=== PATIENT | female | born 1970 | race Caucasian/White ===

== ENCOUNTER → 2016-08-30 | Outpatient (CLI) | payer OTHER | LOC: BMCIMAGING 10:51 | PROVIDERS: ATTEND Obstetrics & Gynecology | DX: Z12.31 Encounter for screening mammogram for malignant neoplasm of breast (principal) | CPT/HCPCS: G0202 ==

== ENCOUNTER → 2017-08-31 | Outpatient (CLI) | payer OTHER | LOC: BMCIMAGING 08:27 | PROVIDERS: ATTEND Internal Medicine | DX: Z12.31 Encounter for screening mammogram for malignant neoplasm of breast (principal); R92.8 Other abnormal and inconclusive findings on diagnostic imaging of breast ==

== ENCOUNTER → 2017-09-07 | Outpatient (CLI) | payer OTHER | LOC: BMCIMAGING 09:46 | PROVIDERS: ATTEND Internal Medicine | DX: R92.8 Other abnormal and inconclusive findings on diagnostic imaging of breast (principal) ==

== ENCOUNTER → 2018-09-05 | Outpatient (CLI) | payer BC | LOC: BMCIMAGING 07:41 ==